=== PATIENT | female | born 1965 | race Caucasian/White ===

== ENCOUNTER 2020-10-06 09:11 | Day surgery (SDC) | payer OTHER, SELFPAY ==
[2020-10-05 10:30] VITALS: BMI 27.7
--- NOTE | 2020-10-05 12:24 | P.CONAN_ITS ---
Documented by User: Alethaher Limaney 10/05/20 12:25 HPI - Anesthesia Eval Consult details Narrative: 55yo F for Sacroiliac Joint Innervation Radiofrequency Ablation (L) s/p medial branch block RFA 01/2020 with MAC [facility] Past Medical History Medical History Back pain Depression History of anxiety HTN (hypertension) Surgical History Surgical History Hx of excision of mass Social History Social History Smoking Status: Never smoker Use of substances other than those prescribed or required for medical reasons: No Advance Directives: No Advance Directives Information Provided: No Meds Allergies Allergy/AdvReac Type Severity Reaction Status Date / Time No Known Allergies Allergy Verified 10/03/20 10:58 [No Known Allergies*] Home Medications Medication Instructions Recorded Confirmed Type gabapentin 1 cap PO BID 10/03/20 10/03/20 History lisinopril 1 tab PO DAILY 10/03/20 10/03/20 History lorazepam 1 tab PO BEDTIME PRN 10/03/20 10/03/20 History bupropion HCl 1 tab PO QAM 10/06/20 10/06/20 History Exam Exam Date and Time: October 05, 2020 1224 Height,Weight and Vital Signs: Height 5 ft Weight 64.5 kg Assessment and Plan Assessment Anesthesia Assessment: Chart Reviewed Documented by User: Fritz Pastor MD 10/06/20 11:01 [facility] Past Medical History Medical History Back pain Depression History of anxiety HTN (hypertension) Surgical History Surgical History Hx of excision of mass Social History Social History Smoking Status: Never smoker Use of substances other than those prescribed or required for medical reasons: No Advance Directives: No Advance Directives Information Provided: No Meds Allergies Allergy/AdvReac Type Severity Reaction Status Date / Time No Known Allergies Allergy Verified 10/03/20 10:58 [No Known Allergies*] Home Medications Medication Instructions Recorded Confirmed Type gabapentin 1 cap PO BID 10/03/20 10/03/20 History lisinopril 1 tab PO DAILY 10/03/20 10/03/20 History lorazepam 1 tab PO BEDTIME PRN 10/03/20 10/03/20 History bupropion HCl 1 tab PO QAM 10/06/20 10/06/20 History Exam Airway Mallampati Class: I TM Dist: >3cm Neck ROM: Full Loose/Missing/Broken Teeth: No Heart: rrr Lungs: nl Other: ao Assessment and Plan Assessment Anesthesia Assessment: Anesthesia Plan Discussed and Chart Reviewed Final Anesthetic Review NPO: Yes ASA Class: II Final Preanesthetic Review: No Changes in Pt Med Stat, Meds/Allgs Chart Reviewed , Consent Obtained/Reviewed and Anes Risks/Benef Reviewed Patient Risk: Low Procedure Risk: Low Anesthetic Plan Anesthetic Plan: MAC: Disposition: Standard PACU
[2020-10-06 09:29] VITALS: BP 107/75; PULSE 81; RESP 16; TEMP 37.2; O2SAT 97
[2020-10-06] MEDS: Lactated Ringers 1,000 ML 100 ML IVCONT (09:55)
--- NOTE | 2020-10-06 10:57 | FL_ITS ---
EXAMINATION: XR FLUOROSCOPY WITH IMAGES CLINICAL INFORMATION: RFA sacroiliac. COMPARISON: None. TECHNIQUE: Fluoroscopy performed by Dr. Robbie Hearn. Fluoroscopy time: 0.8 minutes DAP: 0.0843 mGycm2 Images: 3 FINDINGS: There are at least 4 needles positioned overlying the right sacral alae for RFA treatment. The SI joints are symmetrical without any sclerosis or lytic process. The sacrum appears unremarkable on this limited exam. FL/FL guidance in OR IMPRESSION: Fluoroscopy was provided to Dr. Hearn for left sacroiliac RFA treatment.
--- NOTE | 2020-10-06 11:05 | P.HPSUR_ITS ---
Pre-Procedural Eval Section A The patient is an INPATIENT: No The History & Physical has been completed within 30 days and I have reviewed it.: No Section B Chief Complaint: Sacroiliitis Details of Present Illness: sacroiliitis Relevant Family History (Specify if Yes): No Relevant Social History: None Present Medications: None Medical History: No relevant PMH Allergies: Allergies Allergy/AdvReac Type Severity Reaction Status Date / Time No Known Allergies Allergy Verified 10/03/20 10:58 [No Known Allergies*] Review of Systems Sugical H&P ROS: Negative: Constitution, Cardiovascular, Respiratory, Ne urological, Psychiatric, Hem-Onc, Allergic/Immunologic, Gastrointestinal, Genitourinary, Musculoskeletal, Integumentary, Endocrine and Eyes/Ears/Nose/Throat Exam Surgical H&P Exam: Normal: HEENT, Normal: Heart, Normal: Lungs, Normal: Extremities, Normal: Abdomen, Normal: Skin and Normal: Neurological Plan Diagnosis/Plan: Unchanged Patient has been examined and remains a candidate for the planned procedure
[2020-10-06 12:14] VITALS: BP 100/66; PULSE 76; RESP 16; TEMP 36.8; O2SAT 98
--- NOTE | 2020-10-06 12:22 | PM.OP ---
Brief Operative Note Date of Service: 10/06/20 Pre-op diagnosis: sacroiliitis Post-op diagnosis: same Procedure: sacroiliac joint left innervation radiofrequency ablation Implants: none Surgeon: Robbie Hearn MD Anesthesia: MAC Estimated blood loss (mL): 1 Condition: stable Disposition: PACU
[2020-10-06 12:30] VITALS: BP 109/72; PULSE 74; RESP 16; O2SAT 100
--- NOTE | 2020-10-06 16:27 | P.OP_ITS ---
Operative Note Operative Note Date of Service: 10/06/20 Narrative: After obtaining informed consent and answering all the questions the patient came to the operating room. She was positioned prone on operating table, [place] [employer] monitors were applied and patient was sedated. TIME-OUT WAS OBTAINED DELINEATING CORRECT SITE AND SIDE OF THE PROCEDURE NAME OF THE PATIENT NEED FOR ANTIBIOTIC RISK OF FIRE. Sterilely draped C-arm was brought over at the operating field and patient's lower back and left buttock were prepped with ChloraPrep and draped with sterile towels. The point of interests were delineated 1st as the left L5 superior articular process at the point of its connection with corresponding transverse process as well as left S1 superior articular process at it's connection with sacral alae. The the skin in the projection of the points of interest were injected with small amount of local lidocaine 2%, after that 22 gauge 3 and a 1/2 inch needles were driven in tunnel vision fashion to the point of interests. When RF cannulas gently contacted the bone the testing for muscular response was performed demonstrating no muscular response to 2 mV. After that the injection of the solution of lidocaine 2% mixed with Marcaine 0.5% with trace amount of Kenalog was injected into each needle. The energy application was performed at 89? centigrade for 90 seconds. After that the needles were rotated 180?, the position of the needles were verified, and the energy was applied 1 more time. The attention was redirected after that to sacral bone where several RF cannulas were placed from connection of the sacral alae with superior articular process of S1 all the way down to the lowest point of sacroiliac joint on the medial side of the joint in palisade fashion. The cannulas were tested with motor response and no motor response was found. After that small amount of the solution of the local anesthetic mixed with Kenalog as described above was injected into each cannula. After that the same application of energy was performed for each of the cannula. Upon completion of the energy applications the cannulas were withdrawn sterile dressings were applied. The patient tolerated procedure well she was awaken taken outside of the operating room to the recovery room where she recovered uneventfully. She went home without immediate complications.
== END 2020-10-06 13:03 | disposition home or self-care (01) ==
PROVIDERS: PCP Family Medicine; Visit Provider Anesthesiology
PROC: (CPT 64635; principal; 2020-10-06 10:50)
DX: M46.1 Sacroiliitis, not elsewhere classified (principal); I10 Essential (primary) hypertension; F32.9 Major depressive disorder, single episode, unspecified; Z79.899 Other long term (current) drug therapy
CPT/HCPCS: 64625; J2250; J3010; J3300; Q9967

== ENCOUNTER 2020-10-13 11:55 | Day surgery (SDC) | payer OTHER, SELFPAY ==
[2020-10-06 20:07] VITALS: BMI 28.3
--- NOTE | 2020-10-12 10:12 | P.CONAN_ITS ---
Documented by User: Aletha Hermosillo 10/12/20 10:14 HPI - Anesthesia Eval Consult details Narrative: 55yo F for Sacroiliac Joint Innervation Radiofrequency Ablation (R) s/p left Sacroiliac Joint Innervation Radiofrequency Ablation 10/06/20 [facility] Past Medical History Medical History Back pain Depression History of anxiety HTN (hypertension) Sacroiliac joint pain Surgical History Surgical History History of colonoscopy Hx of excision of mass Social History Social History Smoking Status: Never smoker Use of substances other than those prescribed or required for medical reasons: No Advance Directives: No Advance Directives Information Provided: No Advance Directives on File: No Meds Allergies Allergy/AdvReac Type Severity Reaction Status Date / Time No Known Allergies Allergy Verified 10/06/20 20:06 [No Known Allergies*] Home Medications Medication Instructions Recorded Confirmed Type lisinopril 1 tab PO DAILY 10/03/20 10/06/20 History lorazepam 1 tab PO BEDTIME PRN 10/03/20 10/06/20 History bupropion HCl 1 tab PO QAM 10/06/20 10/13/20 History ibuprofen 800 mg PO TID PRN 10/06/20 10/06/20 History Exam Exam Date and Time: October 12, 2020 1012 Height,Weight and Vital Signs: Height 5 ft Weight 65.771 kg Assessment and Plan Assessment Anesthesia Assessment: Chart Reviewed Documented by User: Rey Cochran 10/13/20 12:28 [facility] Past Medical History Medical History Back pain Depression History of anxiety HTN (hypertension) Sacroiliac joint pain Surgical History Surgical History History of colonoscopy Hx of excision of mass Social History Social History Smoking Status: Never smoker Use of substances other than those prescribed or required for medical reasons: No Advance Directives: No Advance Directives Information Provided: No Advance Directives on File: No Meds Allergies Allergy/AdvReac Type Severity Reaction Status Date / Time No Known Allergies Allergy Verified 10/06/20 20:06 [No Known Allergies*] Home Medications Medication Instructions Recorded Confirmed Type lisinopril 1 tab PO DAILY 10/03/20 10/06/20 History lorazepam 1 tab PO BEDTIME PRN 10/03/20 10/06/20 History bupropion HCl 1 tab PO QAM 10/06/20 10/13/20 History ibuprofen 800 mg PO TID PRN 10/06/20 10/06/20 History Exam Airway Mallampati Class: II TM Dist: >3cm Neck ROM: Full
--- NOTE | 2020-10-13 07:21 | MHC.SHP ---
Pre-Procedural Eval Section A The patient is an INPATIENT: No The History & Physical has been completed within 30 days and I have reviewed it.: Yes Section B Chief Complaint: Sacroiliitis Allergies: Allergies Allergy/AdvReac Type Severity Reaction Status Date / Time No Known Allergies Allergy Verified 10/06/20 20:06 [No Known Allergies*] Plan I have reviewed the history and physical and performed a pertinent physical examination on my patient. No changes have occurred unless specified.
[2020-10-13 12:06] VITALS: PULSE 83; RESP 16; TEMP 37.7; O2SAT 97
--- NOTE | 2020-10-13 12:35 | P.OP_ITS ---
Operative Note Operative Note Date of Service: 10/06/20 Narrative: After obtaining informed consent and answering all the questions the patient came to the operating room. She was positioned prone on operating table, [place] [employer] monitors were applied and patient was sedated. TIME-OUT WAS OBTAINED DELINEATING CORRECT SITE AND SIDE OF THE PROCEDURE NAME OF THE PATIENT NEED FOR ANTIBIOTIC RISK OF FIRE. Sterilely draped C-arm was brought over at the operating field and patient's lower back and right buttock were prepped with ChloraPrep and draped with sterile towels. The point of interests were delineated 1st as the left L5 superior articular process at the point of its connection with corresponding transverse process as well as left S1 superior articular process at it's connection with sacral alae. The the skin in the projection of the points of interest were injected with small amount of local lidocaine 2%, after that 22 gauge 3 and a 1/2 inch needles were driven in tunnel vision fashion to the point of interests. When RF cannulas gently contacted the bone the testing for muscular response was performed demonstrating no muscular response to 2 mV. After that the injection of the solution of lidocaine 2% mixed with Marcaine 0.5% with trace amount of Kenalog was injected into each needle. The energy application was performed at 89? centigrade for 90 seconds. After that the needles were rotated 180?, the position of the needles were verified, and the energy was applied 1 more time. The attention was redirected after that to sacral bone where several RF cannulas were placed from connection of the sacral alae with superior articular process of S1 all the way down to the lowest point of sacroiliac joint on the medial side of the joint in palisade fashion. The cannulas were tested with motor response and no motor response was found. After that small amount of the solution of the local anesthetic mixed with Kenalog as described above was injected into each cannula. After that the same application of energy was performed for each of the cannula. Upon completion of the energy applications the cannulas were withdrawn sterile dressings were applied. The patient tolerated procedure well she was awaken taken outside of the operating room to the recovery room where she recovered uneventfully. She went home without immediate complications.
--- NOTE | 2020-10-13 12:36 | PM.OP ---
Brief Operative Note Date of Service: 10/13/20 Pre-op diagnosis: sacroiliitis Post-op diagnosis: same Procedure: sacroiliac Implants: none Surgeon: Robbie Hearn MD Anesthesia: MAC Estimated blood loss (mL): 3 Condition: stable Disposition: PACU
--- NOTE | 2020-10-13 12:52 | FL_ITS ---
EXAMINATION: XR FLUOROSCOPY WITH IMAGES CLINICAL INFORMATION: RFA right sacroiliac COMPARISON: None. TECHNIQUE: Fluoroscopy performed by Dr. Robbie Hearn. Fluoroscopy time: 0.6 minutes DAP: 3.19 Gycm2 Images: 1 FINDINGS: Single image submitted for review demonstrates 4 needles projecting over the right sacral nicolás/sacroiliac joint. FL/FL guidance in OR IMPRESSION: Intraoperative fluoroscopy provided for Dr. Hearn for right sacroiliac RFA treatment
[2020-10-13 13:50] VITALS: BP 98/62; PULSE 81; RESP 16; TEMP 36.9; O2SAT 100
[2020-10-13 14:05] VITALS: BP 111/73; PULSE 77; RESP 18; O2SAT 99
[2020-10-13 14:18] VITALS: BP 112/71; PULSE 78; RESP 18; TEMP 36.8; O2SAT 99
--- NOTE | 2020-10-13 15:25 | HO.POSTANES ---
Post Anesthesia Evaluation Post Anesthesia Evaluation Vital Signs: Vital Signs Temp Pulse Resp BP Pulse Ox 10/13/20 14:18 98.2 F 78 18 112/71 99 10/13/20 14:05 77 18 111/73 99 10/13/20 13:50 98.4 F 81 16 98/62 100 10/13/20 12:06 99.8 F 83 16 97 Anesthesia: Monitored Mental Status: Awake Pain Control: Satisfactory Nausea/Vomiting: None Hydration: Adequate Anesthesia-Related Issues: No Anes. Related Issues
== END 2020-10-13 14:45 | disposition home or self-care (01) ==
PROVIDERS: PCP Family Medicine; Visit Provider Anesthesiology
PROC: (CPT 64635; principal; 2020-10-13 13:30)
DX: M46.1 Sacroiliitis, not elsewhere classified (principal); M54.16 Radiculopathy, lumbar region; G89.29 Other chronic pain; I10 Essential (primary) hypertension; F32.9 Major depressive disorder, single episode, unspecified; Z79.899 Other long term (current) drug therapy
CPT/HCPCS: 64625; J2250; J2370; J3010; J3300; Q9967

== ENCOUNTER → 2020-11-13 15:37 | Outpatient (BNVA) | payer OTHER, SELFPAY | PROVIDERS: PCP Family Medicine; Referring Provider Family Medicine; Visit Provider Anesthesiology | DX: M46.1 Sacroiliitis, not elsewhere classified (principal) | CPT/HCPCS: 99212 ==